=== PATIENT | female | born 1930 | race Two or more races ===

== ENCOUNTER 2017-11-22 19:40 | Emergency (ER) | payer MEDICARE, OTHER ==
[~2017-11-22] VITALS: Ht 160 cm; Wt 49.9 kg
[2017-11-22] MEDS ORDERED: SODIUM CHLORIDE 0.9% 500 ML IV ONE (20:00)
[2017-11-22 21:13] LABS: Basophils # (auto) 0.1 uL; Basophils % (auto) 0.8 % (0.0-2.0); Eosinophils # (auto) 0 uL; Eosinophils % (auto) 0.2 % (0.0-7.0); Hematocrit 35.3 % (36.0-46.0); Hemoglobin 11.7 g/dL (12.2-16.2); Lymphocytes # (auto) 2.3 uL; Lymphocytes % (auto) 19.3 % (10.0-50.0); Mean Corpuscular Hemoglobin 31.5 pg (28.0-32.0); Mean Corpuscular Hgb Conc. 33.1 g/dL (32.0-36.0); Mean Corpuscular Volume 95.2 fL (80.0-100.0); Monocytes # (auto) 0.8 uL; Monocytes % (auto) 7.1 % (0.0-12.0); Neutrophils # (auto) 8.5 uL; Neutrophils % (auto) 72.6 % (37.0-80.0); Platelet Count (auto) 222 10^3/uL (140-450); Red Blood Cells 3.71 10^6/uL (4.0-5.20); Red Cell Distribution Width 15.2 % (11.8-14.3); White Blood Cell 11.7 10^3/uL (4.4-10.8)
[2017-11-22 21:44] LABS: Albumin 3.9 g/dL (3.4-5.0); BUN/Creatinine Ratio 21.4; Bilirubin, Total 0.3 mg/dL (0.2-1.0); Calcium 8.7 mg/dL (8.5-10.1); Potassium 4.5 mmol/L (3.5-5.1); Total Protein 8.5 g/dL (6.4-8.2)
[2017-11-22] MEDS ORDERED: HYDROmorphone HCL 2 MG/ML VL IV ONE (21:45)
[2017-11-22 21:53] LABS: Urine Bacteria NONE SEEN /hpf (None Seen); Urine Blood 2+ /uL (Negative); Urine Specific Gravity 1.008 (1.001-1.035); Urine WBC <1 /hpf (0 - 5)
[2017-11-22] MEDS ORDERED: ONDANSETRON HCL 4 MG/2 ML VIAL ONE (22:09)
[2017-11-22] MEDS ORDERED: HYDROmorphone HCL 2 MG TAB ONE (22:12)
[2017-11-22] MEDS ORDERED: LORazepam 2MG/ML-1ML VIAL IV ONE (23:15)
[2017-11-22] MEDS ORDERED: ONDANSETRON HCL 4 MG/2 ML VIAL IV ONE (23:15)
[2017-11-22] MEDS ORDERED: HYDROmorphone HCL 2 MG TAB PO ONE (23:15)
[2017-11-23 04:00] VITALS: BP 145/74
== END 2017-11-23 04:27 | disposition home or self-care (01) ==
LOC: EDBD 19:40 → ER 19:40
DX: S33.5XXA Sprain of ligaments of lumbar spine, initial encounter (principal); K59.00 Constipation, unspecified; M79.1 Myalgia; Z88.0 Allergy status to penicillin; Z88.6 Allergy status to analgesic agent; Z88.2 Allergy status to sulfonamides; W19.XXXA Unspecified fall, initial encounter; Y93.89 Activity, other specified; Y99.8 Other external cause status; Y92.89 Other specified places as the place of occurrence of the external cause
CPT/HCPCS: 36415; 72131; 80053; 81001; 85025; 96361; 96374; 99285; J2060; J2405; J7030

== ENCOUNTER → 2018-12-20 | Outpatient (CLI) | payer MEDICARE, OTHER ==
[2018-12-20 11:36] LABS: Basophils # (auto) 0.1 uL; Basophils % (auto) 0.8 % (0.0-2.0); Eosinophils # (auto) 0.2 uL; Eosinophils % (auto) 1.3 % (0.0-7.0); Hematocrit 40.7 % (36.0-46.0); Hemoglobin 13.2 g/dL (12.2-16.2); Lymphocytes % (auto) 48.2 % (10.0-50.0); Mean Corpuscular Hemoglobin 30.8 pg (28.0-32.0); Mean Corpuscular Hgb Conc. 32.5 g/dL (32.0-36.0); Mean Corpuscular Volume 94.9 fL (80.0-100.0); Monocytes # (auto) 1.2 uL; Monocytes % (auto) 9.6 % (0.0-12.0); Neutrophils % (auto) 40.1 % (37.0-80.0); Platelet Count (auto) 247 10^3/uL (140-450); Red Blood Cells 4.29 10^6/uL (4.0-5.20); Red Cell Distribution Width 14.7 % (11.8-14.3); White Blood Cell 12.5 10^3/uL (4.4-10.8)
[2018-12-20 11:50] LABS: Albumin 4.1 g/dL (3.4-5.0); Calcium 9.1 mg/dL (8.5-10.1); Potassium 4.1 mmol/L (3.5-5.1)
[2018-12-20 12:07] LABS: Urine Bacteria NONE SEEN /hpf (None Seen); Urine Blood 1+ /uL (Negative); Urine Specific Gravity 1.008 (1.001-1.035); Urine WBC 333 /hpf (0 - 5); Urine WBC Clumps PRESENT /hpf (None Seen)
[2018-12-20 12:19] LABS: BUN/Creatinine Ratio 20.2; Bilirubin, Total 0.4 mg/dL (0.2-1.0)
== END | disposition home or self-care (01) ==
LOC: LAB 10:04
PROVIDERS: ATTEND Nurse Practitioner
DX: E78.5 Hyperlipidemia, unspecified (principal)
CPT/HCPCS: 36415; 80053; 80061; 81001; 84443; 85025

== ENCOUNTER 2019-07-29 17:41 | Inpatient (IN) | payer MEDICARE, OTHER ==
[~2019-07-29] VITALS: Ht 152.4 cm; Wt 46.3 kg
[2019-07-29 18:11] LABS: Basophils # (auto) 0.1 uL; Basophils % (auto) 0.2 % (0.0-2.0); Eosinophils # (auto) 0 uL; Hematocrit 38.1 % (36.0-46.0); Hemoglobin 12.5 g/dL (12.2-16.2); Lymphocytes # (auto) 1.4 uL; Lymphocytes % (auto) 5.2 % (10.0-50.0); Mean Corpuscular Hemoglobin 30.9 pg (28.0-32.0); Mean Corpuscular Hgb Conc. 32.7 g/dL (32.0-36.0); Mean Corpuscular Volume 94.3 fL (80.0-100.0); Monocytes # (auto) 0.8 uL; Monocytes % (auto) 3.1 % (0.0-12.0); Neutrophils # (auto) 24.9 uL; Neutrophils % (auto) 91.5 % (37.0-80.0); Platelet Count (auto) 202 10^3/uL (140-450); Red Blood Cells 4.04 10^6/uL (4.0-5.20); Red Cell Distribution Width 14.2 % (11.8-14.3); White Blood Cell 27.2 10^3/uL (4.4-10.8)
[2019-07-29 18:19] LABS: INR 1.06 (0.9-1.15); Partial Thromboplastin Time 33.4 sec (23.64-32.05)
[2019-07-29 18:20] LABS: Anion Gap 10 (5-15); Carbon Dioxide 22 mmol/L (21-32); Chloride 108 mmol/L (98-107); Potassium 4.5 mmol/L (3.5-5.1); Sodium 140 mmol/L (136-145)
[2019-07-29 18:21] LABS: Alanine Aminotransferase 34 U/L (13-56); Alkaline Phosphatase 63 U/L (45-117); Aspartate Aminotransferase 33 U/L (15-37); BUN/Creatinine Ratio 12.5; Bilirubin, Total 0.6 mg/dL (0.2-1.0); Blood Urea Nitrogen 33 mg/dL (7-18); Calcium 8.2 mg/dL (8.5-10.1); GFR African American 22 mL/min; GFR Non-African American 18 mL/min; Glucose 89 mg/dL (74-106)
[2019-07-29 18:22] LABS: Albumin 3.4 g/dL (3.4-5.0); Total Protein 7.5 g/dL (6.4-8.2)
[2019-07-29 19:29] LABS: Lactic Acid w/Reflex 2.5 mmol/L (0.4-2.0)
[2019-07-29 19:54] LABS: Urine Bacteria MOD /hpf (None Seen); Urine Blood 2+ /uL (Negative); Urine Mucus FEW (None Seen); Urine Specific Gravity 1.014 (1.001-1.035); Urine WBC 431 /hpf (0 - 5)
[2019-07-29] MEDS ORDERED: SODIUM CHLORIDE 0.9% 2,000 ML IV ONE (20:00)
[2019-07-29] MEDS ORDERED: cefTRIAXone 1GM/50ML D5W 50 ML IV ONE (20:00)
[2019-07-29] MEDS ORDERED: SODIUM CHLORIDE 0.9% 1,000 ML IV ONE (21:15)
[2019-07-29] MEDS ORDERED: VANCOMYCIN PER PHARMACY 0 MG IV SCH (21:30)
[2019-07-29] MEDS ORDERED: ASPirin-EC 325mg tab PO ONE (21:30)
[2019-07-29] MEDS ORDERED: NITROGLYCERIN 0.4 MG SL TAB SL PRN (21:30)
[2019-07-29] MEDS ORDERED: ACETAMINOPHEN 325 MG TAB PO PRN (21:30)
[2019-07-29] MEDS: SODIUM CHLORIDE 0.9% 1,000 ML IV SCH (21:30)
[2019-07-29] MEDS ORDERED: ONDANSETRON HCL 4 MG/2 ML VIAL IV PRN (21:30)
[2019-07-29] MEDS ORDERED: LEVOFLOXACIN 250MG 50 ML IV ONE (21:30)
[2019-07-29] MEDS: ATORVASTATIN 20 MG TAB PO SCH (22:12)
[2019-07-29] MEDS ORDERED: VANCOMYCIN 500 MG in D5W 5% 100 ML IV ONE (22:45)
[2019-07-29 23:32] VITALS: BP 136/63
--- NOTE | 2019-07-30 | NUR ---
Admitted to room 277A. Alert and oriented x3. Delayed in her responses and forgetful. Family at bedside to assist with answering questions. KFjesús Herring Tish. Receiving antibiotics for UTI. Will reconcile meds and call hospitalist for orders. Daughter Rosette at bedside states " she has been on [place] for 30+ years and will ask every 6 hours. "No orders at this time. Will page Tejada in place draining very cloudy thick urine. Bed rest at this time. Oriented to room and hospital visiting hours. Patient brought copy of Advanced directive, placed in chart. Wishes to be DNR. Will notify Bed low and alarm in place. Turning q2.
[2019-07-30] MEDS ORDERED: HYDR-4833 PO (00:29)
[2019-07-30] MEDS ORDERED: GABA100C9 PO (00:32)
[2019-07-30] MEDS ORDERED: RANI-435 PO (00:32)
[2019-07-30] MEDS ORDERED: PRE1T PO (00:32)
[2019-07-30] MEDS ORDERED: CHOL1TAB42 PO (00:37)
[2019-07-30] MEDS ORDERED: FENO1TAB42 PO (00:37)
[2019-07-30] MEDS ORDERED: LEVO100T8 PO (00:37)
[2019-07-30] MEDS ORDERED: CITA-243 PO (00:37)
[2019-07-30] MEDS ORDERED: DIGO0.1262 PO (00:37)
[2019-07-30] MEDS ORDERED: HYDROcodone-ACET 5/325MG TAB PO ONE (01:00)
[2019-07-30] MEDS: TEMAZEPAM 15 MG CAP PO PRN (01:02)
[2019-07-30 05:38] LABS: Basophils # (auto) 0 uL; Basophils % (auto) 0.2 % (0.0-2.0); Eosinophils # (auto) 0.1 uL; Eosinophils % (auto) 0.7 % (0.0-7.0); Hemoglobin 11.4 g/dL (12.2-16.2); Lymphocytes # (auto) 0.5 uL; Lymphocytes % (auto) 4.7 % (10.0-50.0); Mean Corpuscular Hgb Conc. 32.7 g/dL (32.0-36.0); Mean Corpuscular Volume 94.8 fL (80.0-100.0); Monocytes # (auto) 0.1 uL; Monocytes % (auto) 0.8 % (0.0-12.0); Neutrophils # (auto) 10.7 uL; Neutrophils % (auto) 93.6 % (37.0-80.0); Platelet Count (auto) 150 10^3/uL (140-450); Red Blood Cells 3.69 10^6/uL (4.0-5.20); Red Cell Distribution Width 14.4 % (11.8-14.3); White Blood Cell 11.4 10^3/uL (4.4-10.8)
[2019-07-30 05:39] VITALS: BP 121/65
[2019-07-30 05:51] LABS: Albumin 2.7 g/dL (3.4-5.0); BUN/Creatinine Ratio 17.6; Calcium 7.4 mg/dL (8.5-10.1)
[2019-07-30 05:54] LABS: Bilirubin, Total 0.5 mg/dL (0.2-1.0); Total Protein 6.2 g/dL (6.4-8.2)
--- NOTE | 2019-07-30 07:20 | NUR ---
OPENING NOTE ASSUMED CARE OF PT. PT ALERT AND ORIENTED TO SELF AND PLACE. NO S/S OF SOB/DISTRESS. SAFETY PRECAUTIONS IN PLACE. BED SET TO LOWEST POSITION/LOCKED. BEDSIDE RAILS UP X2. BED ALARM ON. CALL LIGHT WITH IN REACH. INSTRUCTED PT TO CALL FOR ASSISTANCE. WILL CONTINUE TO MONITOR Q 1HR AND PRN.
[2019-07-30 09:00] VITALS: BP 148/67
[2019-07-30] MEDS: PANTOPRAZOLE 40 MG TAB PO SCH (09:48)
[2019-07-30] MEDS: SODIUM CHLORIDE 0.9% 1,000 ML IV SCH ×2 (09:49→22:30)
[2019-07-30] MEDS ORDERED: ASPirin 81 mg TAB PO SCH (10:00)
[2019-07-30] MEDS: HYDROcodone-ACET 5/325MG TAB PO PRN ×3 (11:11→23:00)
[2019-07-30 13:00] VITALS: BP 151/66
[2019-07-30] MEDS ORDERED: VANCOMYCIN 750mg/250ml 250 ML IV ONE (13:00)
--- NOTE | 2019-07-30 14:31 | NUR ---
SLIDE MACHINE TENDER AT BEDSIDE. PATIENT IS REFUSING ECHO. PATIENT STATED "MY HEART IS FINE, ITS BEEN FINE FOR YEARS. MY LOWER BACK IS WHAT HURT NOT MY HEART." WILL INFORM MD.
--- NOTE | 2019-07-30 14:37 | NUR ---
MD PAGED DR. ROSE RE: ECHO, AWAITING CALL BACK. SPOKE TO DR. ORSE VIA TELEPHONE. MADE AWARE PATIENT IS REFUSING ECHO.
--- NOTE | 2019-07-30 16:12 | NUR ---
DAUGHTER DAUGHTER AT BED UPDATE ON POC. DAUGHTER MADE AWARE PATIENT IS REFUSED ECHO. DAUGHTER REQUESTING TO SPEAK TO MD. CALL DAUGHTER FOUZIA VILLAGOMEZ [phone]
[2019-07-30] MEDS ORDERED: GABAPENTIN 300 MG CAP PO ONE (16:15)
[2019-07-30] MEDS ORDERED: DIGOXIN 0.125 MG TAB PO ONE (16:15)
[2019-07-30 17:00] VITALS: BP 149/70
--- NOTE | 2019-07-30 19:00 | NUR ---
Opening Shift Note Assumed care of patient, awake and alert. No S/S of distress/SOB or pain. Instructed on POC and to call for assist PRN, will continue to monitor for changes Q1hr and PRN.
[2019-07-30] MEDS: ATORVASTATIN 20 MG TAB PO SCH (21:34)
[2019-07-30] MEDS: LEVOFLOXACIN 250MG 50 ML IV SCH (21:34)
[2019-07-30 22:00] VITALS: BP 150/70
[2019-07-31 04:38] VITALS: BP 149/79
[2019-07-31] MEDS: HYDROcodone-ACET 5/325MG TAB PO PRN ×2 (05:39→20:40)
[2019-07-31] MEDS: LEVOTHYROXINE SODIUM 50 MCG TAB PO SCH (06:42)
--- NOTE | 2019-07-31 07:43 | NUR ---
Opening Shift Note Assumed care of patient, awake and alert. No S/S of distress/SOB or pain. Instructed on POC and to call for assist PRN, will continue to monitor for changes Q1hr and PRN. educated pt on importance of lab draw and morning labs pt stated "you are not going to poke me this morning im fine" advised my nightshift rn as well that pt refusing am labs
[2019-07-31 08:54] VITALS: BP 173/91
[2019-07-31] MEDS: PANTOPRAZOLE 40 MG TAB PO SCH (09:59)
[2019-07-31] MEDS: predniSONE 5 MG TAB PO SCH (10:00)
[2019-07-31] MEDS: GABAPENTIN 300 MG CAP PO SCH (10:00)
[2019-07-31] MEDS: CITALOPRAM HYDROBR 20 MG TAB PO SCH (10:00)
[2019-07-31] MEDS: DIGOXIN 0.125 MG TAB PO SCH (10:01)
--- NOTE | 2019-07-31 10:24 | NUR ---
md rounded on pt updated pt on plan of care, spoke to pt daughter luke on pt cellphone updated on plan of care for pain management and new order for ct of spine, also explained to daughter the pts right to refuse procedures and the need for the daughter to be here at bedside with pt, daughter verbalized understanding
[2019-07-31] MEDS: SODIUM CHLORIDE 0.9% 1,000 ML IV SCH ×2 (10:52→23:30)
--- NOTE | 2019-07-31 11:22 | NUR ---
spoke with pt daughter she sated she convinced mother to do labs and ct, lab called to come back and draw on pt, pt taken to ct
--- NOTE | 2019-07-31 11:37 | NUR ---
pt back from ct
--- NOTE | 2019-07-31 12:00 | NUR ---
pt daughter at bedside
[2019-07-31 13:00] VITALS: BP 154/76
[2019-07-31] MEDS: cloNIDine HCL 0.1 MG TAB PO PRN (16:46)
[2019-07-31 16:51] VITALS: BP 173/79
[2019-07-31] MEDS: TEMAZEPAM 15 MG CAP PO PRN (20:39)
[2019-07-31 21:42] VITALS: BP 110/63
[2019-07-31] MEDS: ATORVASTATIN 20 MG TAB PO SCH (22:03)
[2019-07-31] MEDS: LEVOFLOXACIN 250MG 50 ML IV SCH (22:03)
--- NOTE | 2019-07-31 23:55 | NUR ---
IV to right FA D/C'd d/t patient complaining of pain to IV site. IV site noted to be infiltrated d/t large amount of swelling noted to IV site. IV removed with catheter fully intact. Patient tolerated intervention well.
--- NOTE | 2019-08-01 | NUR ---
IV insertion IV access obtained to Right FA, via clean sterile technique by inserting 22 gauge catheter after 1 attempt. IV secured properly. No trauma to site. Patient tolerated procedure well.
[2019-08-01 05:00] VITALS: BP 120/73
[2019-08-01 05:43] LABS: Basophils # (auto) 0 uL; Basophils % (auto) 0.2 % (0.0-2.0); Eosinophils # (auto) 0 uL; Eosinophils % (auto) 0.3 % (0.0-7.0); Hematocrit 34.1 % (36.0-46.0); Hemoglobin 11.2 g/dL (12.2-16.2); Lymphocytes # (auto) 2.2 uL; Lymphocytes % (auto) 14.9 % (10.0-50.0); Mean Corpuscular Volume 93.9 fL (80.0-100.0); Monocytes % (auto) 6.5 % (0.0-12.0); Neutrophils # (auto) 11.7 uL; Neutrophils % (auto) 78.1 % (37.0-80.0); Platelet Count (auto) 132 10^3/uL (140-450); Red Blood Cells 3.63 10^6/uL (4.0-5.20); Red Cell Distribution Width 14.1 % (11.8-14.3); White Blood Cell 14.9 10^3/uL (4.4-10.8)
[2019-08-01 05:51] LABS: BUN/Creatinine Ratio 24.8; Calcium 8.1 mg/dL (8.5-10.1); Potassium 4.1 mmol/L (3.5-5.1)
[2019-08-01] MEDS: HYDROcodone-ACET 5/325MG TAB PO PRN ×3 (06:00→23:16)
[2019-08-01] MEDS: LEVOTHYROXINE SODIUM 50 MCG TAB PO SCH (06:54)
[2019-08-01] MEDS ORDERED: ADENOSINE 42 MG in GIVE UN-DILUTED 0 ML IV STA (08:28)
[2019-08-01 08:55] VITALS: BP 119/63
[2019-08-01] MEDS: PANTOPRAZOLE 40 MG TAB PO SCH (09:38)
[2019-08-01] MEDS: predniSONE 5 MG TAB PO SCH (09:38)
[2019-08-01] MEDS: GABAPENTIN 300 MG CAP PO SCH (09:39)
[2019-08-01] MEDS: CITALOPRAM HYDROBR 20 MG TAB PO SCH (09:39)
[2019-08-01] MEDS ORDERED: VANCOMYCIN 750mg/250ml 250 ML IV ONE (10:00)
[2019-08-01] MEDS: DIGOXIN 0.125 MG TAB PO SCH (10:00)
--- NOTE | 2019-08-01 10:30 | NUR ---
PT REQUESTED P.T. EVALUATION AFTER THE STRESS TEST AND ECHO WERE DONE.
--- NOTE | 2019-08-01 11:16 | NUR ---
Stress test Patient left the floor in hospital bed and was taken down for stress test. Patient has two patent IVs, one in the LFA and on in the L hand. Patient has been NPO as ordered. Addendum: 08/01/19 at 1229 by KATELYN ANN RN RN WRONG PATIENT!
[2019-08-01] MEDS: SODIUM CHLORIDE 0.9% 1,000 ML IV SCH ×2 (11:37→23:16)
[2019-08-01 13:04] VITALS: BP 130/66
[2019-08-01 16:50] VITALS: BP 135/67
[2019-08-01 22:00] VITALS: BP 150/67
[2019-08-01] MEDS: LEVOFLOXACIN 250MG 50 ML IV SCH (23:15)
[2019-08-01] MEDS: ATORVASTATIN 20 MG TAB PO SCH (23:15)
[2019-08-01] MEDS: TEMAZEPAM 15 MG CAP PO PRN (23:16)
[2019-08-02 05:00] VITALS: BP 145/76
[2019-08-02 05:42] LABS: Basophils # (auto) 0 uL; Basophils % (auto) 0.2 % (0.0-2.0); Eosinophils # (auto) 0.1 uL; Eosinophils % (auto) 1.1 % (0.0-7.0); Hematocrit 33.4 % (36.0-46.0); Hemoglobin 10.9 g/dL (12.2-16.2); Lymphocytes # (auto) 2.1 uL; Lymphocytes % (auto) 25.2 % (10.0-50.0); Mean Corpuscular Hemoglobin 30.7 pg (28.0-32.0); Mean Corpuscular Hgb Conc. 32.7 g/dL (32.0-36.0); Mean Corpuscular Volume 93.9 fL (80.0-100.0); Monocytes % (auto) 12.1 % (0.0-12.0); Neutrophils # (auto) 5.1 uL; Neutrophils % (auto) 61.4 % (37.0-80.0); Platelet Count (auto) 140 10^3/uL (140-450); Red Blood Cells 3.56 10^6/uL (4.0-5.20); Red Cell Distribution Width 14.3 % (11.8-14.3); White Blood Cell 8.3 10^3/uL (4.4-10.8)
[2019-08-02] MEDS: LEVOTHYROXINE SODIUM 50 MCG TAB PO SCH (06:43)
[2019-08-02] MEDS: HYDROcodone-ACET 5/325MG TAB PO PRN ×2 (07:00→16:49)
--- NOTE | 2019-08-02 08:00 | NUR ---
Opening Shift Note Assumed care of patient, resting with eyes closed but wakes easily to sound and light touch. No S/S of distress/SOB or pain. Instructed on POC and to call for assist PRN, will continue to monitor for changes Q1hr and PRN.
[2019-08-02 09:00] VITALS: BP 150/76
[2019-08-02] MEDS: DIGOXIN 0.125 MG TAB PO SCH (09:37)
[2019-08-02] MEDS: CITALOPRAM HYDROBR 20 MG TAB PO SCH (09:37)
[2019-08-02] MEDS: predniSONE 5 MG TAB PO SCH (09:37)
[2019-08-02] MEDS: GABAPENTIN 300 MG CAP PO SCH (09:37)
[2019-08-02] MEDS: PANTOPRAZOLE 40 MG TAB PO SCH (09:37)
--- NOTE | 2019-08-02 10:10 | NUR ---
SS/DC today/Stress test Dr. Meredith on unit. He stated to contact SS for SNF placement for D/C after stress test. Contacted stress lab and they said she is on the schedule for a stress test but they do not know the time.
--- NOTE | 2019-08-02 10:24 | NUR ---
Off unit to stress test Patient was taken off unit in w/c to stress test as ordered.
[2019-08-02 10:58] VITALS: BP 169/88
--- NOTE | 2019-08-02 11:30 | NUR ---
Returned to unit Patient returned to unit from stress test.
[2019-08-02 13:00] VITALS: BP 161/58
[2019-08-02] MEDS: SODIUM CHLORIDE 0.9% 1,000 ML IV SCH (13:47)
--- NOTE | 2019-08-02 14:42 | NUR ---
Nutrition Assessment Notes please see attached link for complete assessment Est. Needs BW [id number] kcal (25-30 kcal/kgBW), 51-56 gms pro (1.0-1.1 gms/kgBW). Will continue to monitor pertinent labs and reassess nutrient need prn Addendum: 08/02/19 at [address] RD Amended: Links added.
--- NOTE | 2019-08-02 17:33 | NUR ---
D/C Planning Per consult for SNF placement rehab. Per Amita information and choice letter was given to Pt. Pt requested [facility]. Contacted [facility]. Per Chaya from [facility] Pt has been accepted to room [address] Ryan. Will set up transportation upon d/c day. Addendum: 08/02/19 at 1736 by MARYELLEN GAYTAN Amended: Links added.
--- NOTE | 2019-08-02 17:57 | NUR ---
B/P AND PAIN MED PATIENT'S B/P WAS 163/97 WHEN CHECKED BY ENERGY AUDIT ADVISOR WITH A PAIN LEVEL OF 7/10 REPORTED BY THE PATIENT. THIS NURSE BROUGHT THE PATIENT PRN JOSECO AND RECHECKED THE B/P. AT THIS TIME THE PATIENT WAS RESTING WITH EYES CLOSED BUT WOKE EASILY TO SOUND AND LIGHT TOUCH. B/P IS 145/100, HR 77. NO COMPLAINTS FROM PATIENT AT THIS TIME. WILL CONTINUE TO MONITOR.
--- NOTE | 2019-08-02 19:32 | NUR ---
Opening Shift Note Report received from day shift RN Nighat. Assumed care of patient. Patient laying in bed awake and alert x4. No S/S of distress/SOB noted. Patient verbalizes IV site pain, upon initial assessment, right forearm IV appears to be infiltrated, swelling, redness, and pain present. IV fluids immediately stopped, arm elevated, and ice pack provided. Will medicate for pain as per order and will continue to reassess and closely monitor site. Bed locked and in the lowest position with the bed alarm on for safety. Call light left within reach. Instructed on POC and to call for assist PRN, will continue to monitor for changes Q1hr and PRN.
--- NOTE | 2019-08-02 19:33 | NUR ---
Right forearm IV removal D/T swelling, erythema, pain IV DC'd with clean sterile technique, catheter fully intact. Pressure dressing applied to site. Arm elevated on pillows, ice pack placed on site. Patient tolerated well.
[2019-08-02] MEDS: cloNIDine HCL 0.1 MG TAB PO PRN (20:25)
[2019-08-02] MEDS ORDERED: LEVOFLOXACIN 250 MG TAB PO SCH (21:00)
[2019-08-02 21:47] VITALS: BP 174/91
[2019-08-02] MEDS: ATORVASTATIN 20 MG TAB PO SCH (22:05)
[2019-08-02] MEDS: TEMAZEPAM 15 MG CAP PO PRN (22:27)
[2019-08-03] MEDS: SODIUM CHLORIDE 0.9% 1,000 ML IV SCH (01:26)
[2019-08-03 05:20] VITALS: BP 123/55
--- NOTE | 2019-08-03 06:01 | NUR ---
AVILEZ CATHETER NOTED TO BE LEAKING, BALLOON INFLATION CHECKED, SEEMS TO BE IN PLACE, AVILEZ URINE CONTENT EMPTIED TO MONITOR NEW DRAINAGE.
[2019-08-03] MEDS: LEVOTHYROXINE SODIUM 50 MCG TAB PO SCH (06:35)
--- NOTE | 2019-08-03 06:45 | NUR ---
AVILEZ CONTINUES TO LEAK. WILL DC AND INSERT NEW AVILEZ
--- NOTE | 2019-08-03 07:00 | NUR ---
Hernandez catheter insertion Patient assessed and determined to be in need of new hernandez catheter. Order in place from MD. Patient educated on catheter and reason for re-insertion. All questions answered. Hernandez catheter 16 guage Gabonese inserted with clean sterile technique. Patient tolerated well.
--- NOTE | 2019-08-03 08:00 | NUR ---
Opening Shift Note Assumed care of patient, awake, alert and oriented X4. No S/S of distress/SOB or pain. Tele# 51, sinus rhythm @ 73 bpm. IV to left forearm, 22 gauge, patent and infusing 0.9% NS @ 80 ml/hr. Urethral Tejada catheter draining clear, straw urine to gravity. Instructed on POC and to call for assist PRN, verbalized understanding. Bed locked, in lowest position, call light within reach, will continue to monitor for changes Q1hr and PRN.
[2019-08-03 09:00] VITALS: BP 141/68
[2019-08-03] MEDS: PANTOPRAZOLE 40 MG TAB PO SCH (09:57)
[2019-08-03] MEDS: CITALOPRAM HYDROBR 20 MG TAB PO SCH (09:57)
[2019-08-03] MEDS: DIGOXIN 0.125 MG TAB PO SCH (09:57)
[2019-08-03] MEDS: GABAPENTIN 300 MG CAP PO SCH (09:57)
[2019-08-03] MEDS: predniSONE 5 MG TAB PO SCH (09:57)
--- NOTE | 2019-08-03 12:00 | NUR ---
ROUNDS Dr Fran Meredith at bedside for rounds, new orders received and followed through. Patient updated on plan of care, verbalized understanding. Patient and daughter Rosette updated on plan of care, verbalized understanding.
[2019-08-03 13:00] VITALS: BP 137/71
--- NOTE | 2019-08-03 14:11 | NUR ---
Tejada catheter dc'd Order to discontinue Tejada catheter. Tejada dc'd with clean technique following deflation of balloon. Patient tolerated well with no complaints of pain. Continue care.
--- NOTE | 2019-08-03 14:36 | NUR ---
D/C planning Followed up called spoke to [facility] spoke to Chaya. Advised Chaya from [facility] Pt will be arriving to facility today. Contacted [facility] spoke to Donald. 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 Informed LINK Arteaga. Addendum: 08/03/19 at 1442 by MARYELLEN GAYTAN SS Amended: Links added.
[2019-08-03 15:56] VITALS: BP 137/71
--- NOTE | 2019-08-03 16:45 | NUR ---
[facility] Report called to LINK Peacock, at [facility]. All questions and concerns addressed.
--- NOTE | 2019-08-03 17:03 | NUR ---
[facility] at bedside for transport. Patient taken via gurney on O2 @ 2 LPM via nasal cannula with all personal belongings. No distress noted upon discharge.
--- NOTE | 2019-08-03 17:05 | NUR ---
Discharge instructions given as ordered. Encourage to follow up with PMD as instructed. All questions and concerns addressed. Patient verbalized understanding. Medication reconciliation form completed and copy given to patient. IV removed with catheter intact, pressure dressing applied, Tejada catheter removed. Telemetry unit returned to ICU. Patient taken via [facility] to [facility].
== END 2019-08-03 17:15 | DRG 871 ==
LOC: ER 17:41 → TELE 17:42 → TELE-WESTW 23:06
PROVIDERS: ADMIT Nurse Practitioner; ATTEND Family Medicine
DX: A41.9 Sepsis, unspecified organism (principal); G93.41 Metabolic encephalopathy; N17.0 Acute kidney failure with tubular necrosis; I21.4 Non-ST elevation (NSTEMI) myocardial infarction; N39.0 Urinary tract infection, site not specified; M48.54XA Collapsed vertebra, not elsewhere classified, thoracic region, initial encounter for fracture; M48.56XA Collapsed vertebra, not elsewhere classified, lumbar region, initial encounter for fracture; E86.0 Dehydration; M19.90 Unspecified osteoarthritis, unspecified site; N18.3 Chronic kidney disease, stage 3 (moderate); I12.9 Hypertensive chronic kidney disease with stage 1 through stage 4 chronic kidney disease, or unspecified chronic kidney disease; F03.90 Unspecified dementia, unspecified severity, without behavioral disturbance, psychotic disturbance, mood disturbance, and anxiety; G89.29 Other chronic pain; M48.061 Spinal stenosis, lumbar region without neurogenic claudication; Y93.89 Activity, other specified; Y92.89 Other specified places as the place of occurrence of the external cause; Y99.8 Other external cause status; Z88.0 Allergy status to penicillin; Z88.5 Allergy status to narcotic agent; Z88.2 Allergy status to sulfonamides; W18.39XA Other fall on same level, initial encounter
CPT/HCPCS: 36415; 70450; 71045; 72131; 78452; 80048; 80053; 80202; 81001; 83605; 84484; 85025; 85610; 85730; 87040; 87081; 87086; 93005; 93017; 93306; 96365; 96367; 97163; 99291; G0378; J0153; J0696; J2405; J7060

== ENCOUNTER 2019-09-09 14:18 | Inpatient (IN) | payer MEDICARE, OTHER ==
[~2019-09-09] VITALS: Ht 147.3 cm; Wt 45.6 kg
[~2019-09-09 14:18] MED LIST: CHOL1TAB42 PO; CITA-243 PO; DIGO0.1262 PO; FENO1TAB42 PO; GABA100C9 PO; HYDR-4833 PO; LEVO100T8 PO; PRE1T PO; RANI-435 PO
[2019-09-09 15:57] LABS: Basophils # (auto) 0.1 uL; Basophils % (auto) 0.9 % (0.0-2.0); Eosinophils # (auto) 0.3 uL; Eosinophils % (auto) 1.7 % (0.0-7.0); Hematocrit 37.6 % (36.0-46.0); Hemoglobin 12.6 g/dL (12.2-16.2); Lymphocytes # (auto) 3.8 uL; Lymphocytes % (auto) 23.1 % (10.0-50.0); Mean Corpuscular Hemoglobin 31.8 pg (28.0-32.0); Mean Corpuscular Hgb Conc. 33.5 g/dL (32.0-36.0); Mean Corpuscular Volume 94.9 fL (80.0-100.0); Monocytes # (auto) 1.2 uL; Monocytes % (auto) 7.3 % (0.0-12.0); Neutrophils # (auto) 10.9 uL; Platelet Count (auto) 299 10^3/uL (140-450); Red Blood Cells 3.96 10^6/uL (4.0-5.20); Red Cell Distribution Width 15.8 % (11.8-14.3); White Blood Cell 16.3 10^3/uL (4.4-10.8)
[2019-09-09 16:09] LABS: Albumin 3.9 g/dL (3.4-5.0); Calcium 8.5 mg/dL (8.5-10.1); Potassium 3.9 mmol/L (3.5-5.1)
[2019-09-09 16:11] LABS: BUN/Creatinine Ratio 24.6
[2019-09-09 16:14] LABS: Bilirubin, Total 0.4 mg/dL (0.2-1.0); Total Protein 7.6 g/dL (6.4-8.2)
[2019-09-09] MEDS ORDERED: cefTRIAXone 1GM/50ML D5W 50 ML IV ONE ×2 (16:45→20:15)
[2019-09-09 17:50] LABS: Urine Bacteria NONE SEEN /hpf (None Seen); Urine Blood 2+ /uL (Negative); Urine WBC 3330 /hpf (0 - 5)
[2019-09-09 17:55] LABS: Urine Specific Gravity 1.015 (1.001-1.035)
[2019-09-09] MEDS ORDERED: ACETAMINOPHEN 500 MG TAB PO PRN (20:15)
[2019-09-09] MEDS ORDERED: ONDANSETRON HCL 4 MG/2 ML VIAL IV PRN (20:15)
[2019-09-09] MEDS ORDERED: NITROGLYCERIN 0.4 MG SL TAB SL PRN (20:15)
[2019-09-09] MEDS: SODIUM CHLORIDE 0.9% 1,000 ML IV SCH (21:10)
[2019-09-09] MEDS: GABAPENTIN 100 MG CAP PO SCH (21:57)
[2019-09-09 22:30] VITALS: BP 157/76
--- NOTE | 2019-09-09 22:30 | NUR ---
Telemetry admit from [facility] admitted to Telemetry unit after SBAR received. Patient oriented to Leonela Oviedo, primary RN, unit, room, bed, and unit policies regarding patient care and visiting hours. Patient now on continuous telemetry monitoring, tele box # [id number] and telemetry reading on arrival to unit is . Patient placed on bedside oxygen, weighed by bedscale and encouraged to call if they need something. All questions and concerns addressed, patient verbalized understanding. Note:
[2019-09-09] MEDS: HYDROcodone-ACET 5/325MG TAB PO PRN (22:44)
[2019-09-09] MEDS: TEMAZEPAM 15 MG CAP PO PRN (23:40)
[2019-09-10] MEDS: LEVOTHYROXINE SODIUM 100 MCG TAB PO SCH (06:01)
[2019-09-10 06:02] VITALS: BP 108/66
[2019-09-10] MEDS: GABAPENTIN 100 MG CAP PO SCH ×3 (06:02→22:42)
[2019-09-10] MEDS: SODIUM CHLORIDE 0.9% 1,000 ML IV SCH ×2 (06:03→18:37)
[2019-09-10 07:50] LABS: Basophils # (auto) 0.2 uL; Basophils % (auto) 1.3 % (0.0-2.0); Eosinophils # (auto) 0.3 uL; Eosinophils % (auto) 2.6 % (0.0-7.0); Hematocrit 33.8 % (36.0-46.0); Hemoglobin 11.1 g/dL (12.2-16.2); Lymphocytes # (auto) 5.6 uL; Lymphocytes % (auto) 49.4 % (10.0-50.0); Mean Corpuscular Hemoglobin 31.9 pg (28.0-32.0); Mean Corpuscular Volume 96.8 fL (80.0-100.0); Monocytes # (auto) 0.9 uL; Monocytes % (auto) 8.4 % (0.0-12.0); Neutrophils # (auto) 4.3 uL; Neutrophils % (auto) 38.3 % (37.0-80.0); Nucleated Red Blood Cells % 0.1 %; Platelet Count (auto) 242 10^3/uL (140-450); Red Blood Cells 3.49 10^6/uL (4.0-5.20); Red Cell Distribution Width 15.9 % (11.8-14.3); White Blood Cell 11.3 10^3/uL (4.4-10.8)
[2019-09-10 08:10] LABS: Albumin 3.1 g/dL (3.4-5.0); BUN/Creatinine Ratio 23.3; Calcium 7.7 mg/dL (8.5-10.1); Potassium 3.9 mmol/L (3.5-5.1)
[2019-09-10 08:13] LABS: Bilirubin, Total 0.3 mg/dL (0.2-1.0); Total Protein 6.2 g/dL (6.4-8.2)
--- NOTE | 2019-09-10 08:29 | NUR ---
Opening Notes Received report on the patient. Patient lying in bed sleeping. Patient shows no signs of distress at this time. Discussed plan of care with the patient. Bed in lowest position, side rails up x2, and the call light is within reach. Will continue to monitor.
[2019-09-10 09:00] VITALS: BP 135/61
[2019-09-10] MEDS: Fenofibrate 145 MG PO SCH (10:00)
[2019-09-10] MEDS: predniSONE 5 MG TAB PO SCH (10:29)
[2019-09-10] MEDS: cefTRIAXone 1GM/50ML D5W 50 ML IV SCH (10:29)
[2019-09-10] MEDS: DIGOXIN 0.125 MG TAB PO SCH (10:30)
[2019-09-10] MEDS: CITALOPRAM HYDROBR 20 MG TAB PO SCH (10:30)
[2019-09-10] MEDS: PANTOPRAZOLE 40 MG TAB PO SCH (10:30)
[2019-09-10] MEDS ORDERED: SOD CHL 0.45% 1,000 ML IV SCH (11:00)
[2019-09-10 13:00] VITALS: BP 117/53
[2019-09-10 13:37] LABS: Cholesterol 109 mg/dL (< 200); Triglycerides 117 mg/dL (< 150)
[2019-09-10 13:40] LABS: HDL Cholesterol 45 mg/dL (40-59); LDL Cholesterol 52 mg/dL (< 100)
[2019-09-10 16:49] VITALS: BP 139/64
[2019-09-10 22:00] VITALS: BP 156/68
[2019-09-10] MEDS: TEMAZEPAM 15 MG CAP PO PRN (22:44)
[2019-09-10] MEDS: HYDROcodone-ACET 5/325MG TAB PO PRN (22:45)
[2019-09-11] MEDS: SODIUM CHLORIDE 0.9% 1,000 ML IV SCH ×2 (02:01→06:52)
[2019-09-11 05:00] VITALS: BP 122/55
[2019-09-11] MEDS: GABAPENTIN 100 MG CAP PO SCH ×2 (06:51→13:30)
[2019-09-11] MEDS: LEVOTHYROXINE SODIUM 100 MCG TAB PO SCH (06:51)
[2019-09-11 06:52] LABS: Basophils # (auto) 0.1 uL; Basophils % (auto) 0.9 % (0.0-2.0); Eosinophils # (auto) 0.3 uL; Eosinophils % (auto) 2.8 % (0.0-7.0); Hematocrit 34.5 % (36.0-46.0); Hemoglobin 11.2 g/dL (12.2-16.2); Lymphocytes # (auto) 5.6 uL; Lymphocytes % (auto) 47.8 % (10.0-50.0); Mean Corpuscular Hemoglobin 31.4 pg (28.0-32.0); Mean Corpuscular Hgb Conc. 32.6 g/dL (32.0-36.0); Mean Corpuscular Volume 96.3 fL (80.0-100.0); Monocytes % (auto) 8.1 % (0.0-12.0); Neutrophils # (auto) 4.7 uL; Neutrophils % (auto) 40.4 % (37.0-80.0); Nucleated Red Blood Cells % 0.2 %; Platelet Count (auto) 259 10^3/uL (140-450); Red Blood Cells 3.58 10^6/uL (4.0-5.20); Red Cell Distribution Width 15.6 % (11.8-14.3); White Blood Cell 11.7 10^3/uL (4.4-10.8)
[2019-09-11] MEDS: HYDROcodone-ACET 5/325MG TAB PO PRN (06:55)
[2019-09-11 07:06] LABS: RPR Non Reactive (Non Reactive)
[2019-09-11 07:12] LABS: BUN/Creatinine Ratio 25.9; Calcium 8.5 mg/dL (8.5-10.1); Potassium 4.1 mmol/L (3.5-5.1)
--- NOTE | 2019-09-11 07:40 | NUR ---
OPENING NOTE ASSUMED CARE OF PATIENT. PT NONVERBAL. NO SIGNS OF SOB/DISTRESS NOTED NOTED. SAFETY PRECAUTIONS IN PLACE, BED SET TO LOWEST POSITION/LOCKED. BEDSIDE RAILS UP X2. BED ALARM ON. CALL LIGHT WITHIN REACH. WILL CONTINUE TO MONITOR Q1HR AND PRN.
[2019-09-11 09:00] VITALS: BP 155/70
[2019-09-11] MEDS: predniSONE 5 MG TAB PO SCH (09:36)
[2019-09-11] MEDS: cefTRIAXone 1GM/50ML D5W 50 ML IV SCH (09:36)
[2019-09-11] MEDS: CITALOPRAM HYDROBR 20 MG TAB PO SCH (09:36)
[2019-09-11] MEDS: Fenofibrate 145 MG PO SCH (09:36)
[2019-09-11] MEDS: PANTOPRAZOLE 40 MG TAB PO SCH (09:36)
[2019-09-11] MEDS: DIGOXIN 0.125 MG TAB PO SCH (09:38)
[2019-09-11] MEDS ORDERED: SOD CHL 0.45% 1,000 ML IV SCH (09:45)
[2019-09-11] MEDS ORDERED: ENOXAPARIN SOD 30 MG/0.3 ML SYRINGE SC SCH (10:00)
--- NOTE | 2019-09-11 10:21 | NUR ---
Attempted PT eval, pt stated "Not right now" and closed her eyes. Will attempt again later.
--- NOTE | 2019-09-11 10:59 | NUR ---
IV insertion IV access obtained, via clean sterile technique by inserting 20 gauge catheter at Right FA after 1 attempt(s). IV secured properly. No trauma to site. Patient tolerated well.
--- NOTE | 2019-09-11 10:59 | NUR ---
IV removal Left FA 20 gauge IV cath DC'd with clean sterile technique, catheter fully intact. Pressure dressing applied to site. Patient tolerated well.
--- NOTE | 2019-09-11 12:10 | NUR ---
DISCHARGE PAGED KIYA (PALLAVI) RE: SNF PLACEMENT. AWAITING CALL BACK.
[2019-09-11 13:00] VITALS: BP 142/67
--- NOTE | 2019-09-11 13:12 | NUR ---
SNF PLACEMENT SPOKE TO KIYA (PALLAVI) MADE HER AWARE OF DISCHARGE AND [facility] ORDER TO TRANSFER TO [facility]. PER KIYA SHE WILL CALL BACK.
--- NOTE | 2019-09-11 13:42 | NUR ---
2nd attempt at PT eval but pt states "Not right now, they are already sending me to rehab." Will try again tomorrow
--- NOTE | 2019-09-11 13:43 | NUR ---
Weekend business transformation consultant-I received a page from Dr. Ryan letting me know that this patient is discharging back to [facility] on IV ATB. I faxed clinical packet/order to [facility] [phone].
--- NOTE | 2019-09-11 14:31 | NUR ---
I called [facility] [phone] and spoke with Venus, she said her RN is reviewing the information-she will give me a call back to let me know if they are accepting this patient. Venus did verify that they would be the ones arranging transportation. I spoke with patient's primary nurse and gave her an update.
--- NOTE | 2019-09-11 14:32 | NUR ---
SNF PLACEMENT SPOKE TO KIYA COVARRUBIAS) VIA PHONE. PER KIYA ROBLES IS REVIEWING CASE, SHE WILL CALL BACK WHEN [facility] CALLS HER.
--- NOTE | 2019-09-11 16:27 | NUR ---
Patient will be going to [facility] room 207 bed 1-nurse to call report to [phone], [facility] to [facility] between 7-8pm this evening (phone number for [facility] [phone] provided this information to nurse Kay.
--- NOTE | 2019-09-11 16:28 | NUR ---
SNF SPOKE TO KIYA COVARRUBIAS) VIA TELEPHONE, PATIENT HAS BEEN ACCEPTED TO [facility] , ROOM 207 BED 1. TRANSPORTATION WILL BE PROVIDED BY [facility] , PICK TIME [phone].
[2019-09-11 17:00] VITALS: BP 150/72
[2019-09-11 18:26] VITALS: BP 150/72
--- NOTE | 2019-09-11 18:31 | NUR ---
REPORT CALLED REPORT TO [facility] , REPORT GIVEN TO LINK LLOYD.
--- NOTE | 2019-09-11 19:27 | NUR ---
Discharge instructions given as ordered. All questions and concerns addressed. Patient verbalized understanding. Patient discharged with Right FA 20 gauge and Tejada cath.Telemetry unit returned to ICU. Report given to LINK Pederson. Patient transported by [facility] with all personal belongings. No distress noted at time of departure.
[2019-09-12 09:59] LABS: Folate (Folic Acid) 6.16 ng/mL (5.38-24)
== END 2019-09-11 19:30 | DRG 872 ==
LOC: EDSEX 14:18 → EDBD 14:18 → ER 14:18 → TELE 20:23 → TELE-CENTR 21:37
PROVIDERS: ADMIT Internal Medicine; ATTEND Internal Medicine
DX: A41.9 Sepsis, unspecified organism (principal); N39.0 Urinary tract infection, site not specified; I10 Essential (primary) hypertension; E03.9 Hypothyroidism, unspecified; G89.29 Other chronic pain; F03.90 Unspecified dementia, unspecified severity, without behavioral disturbance, psychotic disturbance, mood disturbance, and anxiety; K56.41 Fecal impaction; K76.89 Other specified diseases of liver; M19.90 Unspecified osteoarthritis, unspecified site; M54.9 Dorsalgia, unspecified; Z88.5 Allergy status to narcotic agent; I25.2 Old myocardial infarction; Z87.440 Personal history of urinary (tract) infections; Z88.0 Allergy status to penicillin; Z88.2 Allergy status to sulfonamides; Z88.8 Allergy status to other drugs, medicaments and biological substances; Z88.6 Allergy status to analgesic agent; Z91.041 Radiographic dye allergy status; B95.2 Enterococcus as the cause of diseases classified elsewhere
CPT/HCPCS: 36415; 51702; 71045; 74176; 80048; 80053; 80061; 81001; 82607; 82746; 83036; 83605; 84439; 84443; 85025; 86592; 87040; 87081; 87086; 87186; 93005; 96365; 96366; G0378; J0696